=== PATIENT | female | born 1930 | race Caucasian/White ===

== ENCOUNTER 2016-04-21 21:52 | Inpatient (IN) | payer MEDICARE ==
[~2016-04-21] VITALS: Ht 157.5 cm; Wt 69.9 kg
[2016-04-21 11:00] VITALS: BP 158/73
[2016-04-21 22:35] LABS: BASO # 0.1 x10^3/uL (0.0-0.2); BASO % 1 % (0-3); EOS % 2 % (0-3); HEMATOCRIT 36.4 % (36.0-47.0); HEMOGLOBIN 12.2 g/dL (12.0-15.5); LYMPH # 1.6 x10^3/uL (1.0-4.8); LYMPH % 19 % (24-48); MEAN CORPUSCULAR HEMOGLOBIN 31 pg (25-35); MEAN CORPUSCULAR HGB CONC 34 g/dL (31-37); MEAN CORPUSCULAR VOLUME 93 fL (79-100); MONO % 7 % (0-9); NEUT % 71 % (31-73); PLATELET COUNT 356 x10^3/uL (140-400); RED BLOOD COUNT 3.93 x10^6/uL (3.50-5.40); RED CELL DISTRIBUTION WIDTH 12.1 % (11.5-14.5); WHITE BLOOD COUNT 8.5 x10^3/uL (4.0-11.0)
[2016-04-21 22:37] LABS: BILIRUBIN,URINE NEGATIVE (NEG); GLUCOSE,URINE NEGATIVE (NEG); NITRITE,URINE NEGATIVE (NEG); PROTEIN,URINE 30 mg/dL (NEG-TRACE); UROBILINOGEN,URINE 0.2 mg/dL (0.2 mg/dL)
[2016-04-21 22:43] LABS: BACTERIA,URINE 0 /HPF (0-FEW); SQUAMOUS EPITHELIAL CELL,UR MOD /LPF
[2016-04-21 22:48] LABS: CALCIUM 9.1 mg/dL (8.5-10.1); CREATININE 0.9 mg/dL (0.6-1.0); GFR 59.2; POTASSIUM 3.1 mmol/L (3.5-5.1)
[2016-04-21 22:53] LABS: ALBUMIN 2.9 g/dL (3.4-5.0); ALBUMIN/GLOBULIN RATIO 0.7 (1.0-1.7); TOTAL BILIRUBIN 0.1 mg/dL (0.2-1.0); TOTAL PROTEIN 7.2 g/dL (6.4-8.2)
[2016-04-21 23:25] LABS: OBC FLU VALID
[2016-04-21] MEDS ORDERED: IV NORMAL SALINE 1000ML BAG 1,000 ML IV ONE (23:30)
[2016-04-22] VITALS (7 sets, daily range): BP systolic 112–179; BP diastolic 60–73
[2016-04-22] MEDS ORDERED: IV NORMAL SALINE 500ML BAG 500 ML IV ONE
--- NOTE | 2016-04-22 01:14 | ED.ADGEN ---
Past Medical History Past Medical History: Anxiety, Cancer, Hypertension Past Surgical History: Other Additional Past Surgical Histo: Left mastectomy Alcohol Use: None Drug Use: None Adult General Chief Complaint Chief Complaint: FACE PROBLEM HPI HPI Patient is a 85 year old woman, history of hypertension, anxiety, breast cancer status post left mastectomy, who presents emergency department with multiple complaints. Patient states that she's been experiencing a cough, and generalized malaise and fatigue, subjective fevers and chills, for the past several days, patient states that she she has been experiencing rhinorrhea, cough is nonproductive, and noted that she has swelling of her upper lip earlier this afternoon. She does take lisinopril, denies any swelling of the tongue or lower lips, denies any difficulties breathing or swallowing. Has had a decreased appetite. Denies any urinary complaints, any injuries. Patient noted to have very dry mucous membranes upon arrival to the ED, with clear speech, and no significant facial swelling noted. Review of Systems Review of Systems Constitutional: Subjective fevers and chills. Eyes: Denies change in visual acuity. [] HENT: Nasal congestion and sore throat.] Lip swelling. Respiratory: Nonproductive of cough, generalized malaise.] Cardiovascular: Denies chest pain or edema. [] GI: Denies abdominal pain, nausea, vomiting, bloody stools or diarrhea. [] : Denies dysuria. [] Musculoskeletal: Denies back pain or joint pain. [] Integument: Denies rash. [] Neurologic: Denies headache, focal weakness or sensory changes. [] Endocrine: Denies polyuria or polydipsia. [] Lymphatic: Denies swollen glands. [] Psychiatric: Denies depression or anxiety. [] Current Medications Current Medications Current Medications Medications (Trade) Dose Ordered Sig/Stephenie Start Time Stop Time Status Last Admin Dose Admin Sodium Chloride (Iv Sodium Chloride 0.9% 500ml Bag) 500 ml @ 500 mls/hr 1X ONCE 04/22/16 00:00 04/22/16 00:59 DC 04/21/16 23:55 500 MLS/HR Allergies Allergies Allergies Coded Allergies Type Severity Reaction Last Updated Verified No Known Drug Allergies 04/21/16 No Physical Exam Physical Exam Constitutional: Well developed, well nourished, no acute distress, non-toxic appearance. [] HENT: Normocephalic, atraumatic, bilateral external ears normal, oropharynx moist, no oral exudates, patient with nasal congestion noted bilaterally, dry mucous membranes. Patient with very mild swelling of the lip noted, however patient has irritation of the lip, and has an rubbing this area, which appears to be consistent with a smaller swelling she is experiencing, there is no evidence of significant swelling of the upper lip, or any involvement of the tongue lower lip areas of mucosa. Eyes: PERRLA, EOMI, conjunctiva normal, no discharge. [] Neck: Normal range of motion, no tenderness, supple, no stridor. [] Cardiovascular:Heart rate regular rhythm, no murmur, S1, S2, rubs or gallops. [] Lungs & Thorax: Patient coughing during examination, but no significant wheezing , rhonchi or rales appreciated. No chest wall crepitus or tenderness. [] Abdomen: Bowel sounds normal, soft, no tenderness, no rebound, rigidity, no guarding, no masses, no pulsatile masses. [] Skin: Warm, dry, no erythema, no rash. [] Back: No tenderness, no CVA tenderness. [] Extremities: No tenderness, no cyanosis, no clubbing, ROM intact, no edema. Negative Homans sign. [] Neurologic: Alert and oriented X 3, normal motor function, normal sensory function, no focal deficits noted. [] Psychologic: Affect normal, judgement normal, mood normal. [] Current Patient Data Vital Signs Vital Signs Date Time Temp Pulse Resp B/P Pulse Ox O2 Delivery O2 Flow Rate FiO2 04/21/16 23:30 88 15 156/74 96 04/21/16 21:53 98.1 Room Air 98.1 Lab Values Laboratory Tests Test 04/21/16 22:15 04/21/16 23:04 White Blood Count 8.5x10^3/uL (4.0-11.0) Red Blood Count 3.93x10^6/uL (3.50-5.40) Hemoglobin 12.2g/dL (12.0-15.5) Hematocrit 36.4% (36.0-47.0) Mean Corpuscular Volume 93fL (79-100) Mean Corpuscular Hemoglobin 31pg (25-35) Mean Corpuscular Hemoglobin Concent 34g/dL (31-37) Red Cell Distribution Width 12.1% (11.5-14.5) Platelet Count 356x10^3/uL (140-400) Neutrophils (%) (Auto) 71% (31-73) Lymphocytes (%) (Auto) 19% (24-48) L Monocytes (%) (Auto) 7% (0-9) Eosinophils (%) (Auto) 2% (0-3) Basophils (%) (Auto) 1% (0-3) Neutrophils # (Auto) 6.0x10^3uL (1.8-7.7) Lymphocytes # (Auto) 1.6x10^3/uL (1.0-4.8) Monocytes # (Auto) 0.6x10^3/uL (0.0-1.1) Eosinophils # (Auto) 0.1x10^3/uL (0.0-0.7) Basophils # (Auto) 0.1x10^3/uL (0.0-0.2) Urine Collection Type Unknown Urine Color Yellow Urine Clarity Clear Urine pH 6.0 Urine Specific [place] 1.010 Urine Protein 30mg/dL (NEG-TRACE) Urine Glucose (UA) Negativemg/dL (NEG) Urine Ketones (Stick) Negativemg/dL (NEG) Urine Blood Small (NEG) Urine Nitrite Negative (NEG) Urine Bilirubin Negative (NEG) Urine Urobilinogen Dipstick 0.2mg/dL (0.2 mg/dL) Urine Leukocyte Esterase Small (NEG) Urine RBC 1-2/HPF (0-2) Urine WBC 1-4/HPF (0-4) Urine Squamous Epithelial Cells Mod/LPF Urine Bacteria 0/HPF (0-FEW) Sodium Level 135mmol/L (136-145) L Potassium Level 3.1mmol/L (3.5-5.1) L Chloride Level 96mmol/L (98-107) L Carbon Dioxide Level 30mmol/L (21-32) Anion Gap 9 (6-14) Blood Urea Nitrogen 11mg/dL (7-20) Creatinine 0.9mg/dL (0.6-1.0) Estimated GFR (Cockcroft-Gault) 59.2 BUN/Creatinine Ratio 12 (6-20) Glucose Level 236mg/dL (70-99) H Lactic Acid Level 3.6mmol/L (0.4-2.0) H Calcium Level 9.1mg/dL (8.5-10.1) Total Bilirubin 0.1mg/dL (0.2-1.0) L Aspartate Amino Transferase (AST) 18U/L (15-37) Alanine Aminotransferase (ALT) 18U/L (14-59) Alkaline Phosphatase 67U/L (46-116) Troponin I Quantitative < 0.017ng/mL (0.000-0.055) TS-Qyt-B-Type Natriuretic Peptide 119pg/mL (0-449) Total Protein 7.2g/dL (6.4-8.2) Albumin 2.9g/dL (3.4-5.0) L Albumin/Globulin Ratio 0.7 (1.0-1.7) L Influenza Type A Antigen Negative (NEGATIVE) Influenza Type B Antigen Negative (NEGATIVE) Laboratory Tests 04/21/16 22:15 Laboratory Tests 04/21/16 22:15 EKG EKG EC04/06/10: Sinus rhythm, heart rate 90 beats minute, upright axis, QTC of 459 , RI 150, QRS of 76, no ST elevations or depressions, no evidence of acute ST abnormalities. As interpreted by me. [] Interpretation Time: Chest x-ray: Normal cardiopulmonary silhouette, no focal traits, no effusions, no soft tissue or bone abdomen abnormalities identified. As interpreted by me. Radiology/Procedures Radiology/Procedures [] Course & Med Decision Making Course & Med Decision Making Pertinent Labs and Imaging studies reviewed. (See chart for details) Patient is afebrile emergency department, appears to be clinically very dehydrated, with symptoms consistent with a viral illness. Chest x-rays unremarkable, laboratory studies reveal evidence of dehydration with a lactic of 3.6, otherwise Lipitor studies are on concerning, with a negative flu swab. I did discuss findings with patient, she is agreeable for admission to the hospital for supportive management. Patient initiated on fluid bolus and maintenance fluids in the ED. Findings as above discussed with Dr. Floyd of internal medicine, patient accepted to her service as a full admission to the medical telemetry floor with supportive care and monitoring as stated. Dragon Disclaimer Dragon Disclaimer This electronic medical record was generated, in whole or in part, using a voice recognition dictation system. Departure Impression: Primary Impression: Dehydration Additional Impression: Viral respiratory illness Disposition: ADMITTED INPATIENT Admitting Physician: Other Condition: IMPROVED Problem Qualifiers YFN GEORGE DO Apr 22, 2016 01:14
[2016-04-22] MEDS ORDERED: ACETAMINOPHEN 325 MG TABLET. PO PRN (01:30)
[2016-04-22] MEDS ORDERED: ONDANSETRON PF 4 MG/2 ML VIAL. IV PRN (01:30)
[2016-04-22] MEDS: IV NORMAL SALINE 1000ML BAG 1,000 ML IV SCH ×2 (01:50→08:55)
[2016-04-22] MEDS ORDERED: LORA0.5T PO ×3 (01:53)
[2016-04-22] MEDS ORDERED: LISI1TAB3 PO (01:53)
[2016-04-22] MEDS: LORAZEPAM 0.5 MG TABLET. PO SCH ×4 (03:56→21:04)
[2016-04-22] MEDS: IPRATRPIUM/ALBUTEROL 0.5/2.5MG 3 ML NEBU. NEB SCH ×5 (08:08→19:53)
--- NOTE | 2016-04-22 08:18 | RAD ---
AP chest. History: Cough and fever AP view was taken of the chest. 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 Lungs are free of confluent infiltrates. Heart is normal in size. There is no effusion. Impression: 1. No acute chest disease.
--- NOTE | 2016-04-22 08:28 | EKG ---
[facility] [address] [place] [address] Test Date: 2016-04-21 Test Time: 22:11:31 Pat Name: WILBERT LORENZ Department: Room: 563 1 Gender: F Wool Carder: : [id number] Requested By: YFN GEORGE Order Number: [id number] Reading MD: Sruthi Haskins Measurements Intervals [place] Rate: 90 P: 48 WA: 150 QRS: 31 QRSD: 76 T: 52 QT: 372 QTc: 459 Interpretive Statements SINUS RHYTHM NO SPECIFIC ECG ABNORMALITIES RI6.01 Compared to ECG 02/06/2013 01:21:44 No significant changes Electronically Signed On 04-25-2016 23:16:45 SHIATSU THERAPIST by Sruthi Haskins
[2016-04-22] MEDS: HYDROCHLOROTHIAZIDE 12.5 MG CAPSULE. PO SCH (08:54)
[2016-04-22] MEDS: LISINOPRIL 10 MG TABLET PO SCH (08:55)
[2016-04-22] MEDS ORDERED: GUAIFENESIN DM 200MG/20MG 10 ML SYRUP. PO PRN (15:30)
[2016-04-22] MEDS: POTASSIUM CHLORIDE 30 MEQ in IV NORMAL SALINE 1000ML BAG 1,000 ML IV SCH ×2 (16:07→23:45)
[2016-04-22] MEDS ORDERED: LORAZEPAM 0.5 MG TABLET. PO SCH (21:00)
[2016-04-23 03:17] VITALS: BP 171/58
--- NOTE | 2016-04-23 03:47 | HP ---
ADMIT DATE: 04/22/2016 CHIEF COMPLAINT: Weakness. HISTORY OF PRESENT ILLNESS: The patient is an 85-year-old woman with hypertension and anxiety, who presented to the Emergency Room with generalized malaise, subjective fevers, chills, upper respiratory complaints including stuffy nose and sore throat. She relates that these symptoms actually have been going on for about a week. Her cough is very bothersome to her, but is at this time nonproductive. She also has noted some swelling of her upper lip ____ of presentation to the Emergency Room. She denies, however, any chest pain, any nausea, vomiting, swallowing problems, abdominal pain or diarrhea. PAST MEDICAL HISTORY: Hypertension, anxiety, breast cancer, status post left mastectomy. FAMILY HISTORY: Brother with hypertension and CVA. SOCIAL HISTORY: Lives by herself. No toxic habits. ALLERGIES: No known drug allergies. MEDICATIONS: MAR reconciled with home medications. REVIEW OF SYSTEMS: Essentially positive as per HPI for generalized malaise, subjective fevers and upper respiratory symptoms. Rest of organ system review is negative. PHYSICAL EXAMINATION: VITAL SIGNS: Show a blood pressure of 155/73, heart rate of 81, respiratory rate at 14. She is afebrile. GENERAL: This is a well-nourished 85-year-old woman, awake and weak appearing, in no acute distress. HEENT: Shows no scleral icterus. Buccal mucosa is dry and no lesions. NECK: Supple without any palpable lymphadenopathy. LUNGS: Clear to auscultation bilaterally. HEART: Has regular rate and rhythm. ABDOMEN: Has positive bowel sounds, soft, nontender. EXTREMITIES: Show trace edema. SKIN: Warm, soft and dry without any rash. LABORATORY DATA: CBC with WBC of 8.5, hemoglobin 12.2, platelets of 356, essentially normal differential. BUN and creatinine of 11 and 0.9, potassium at 3.1, sodium 135. LFTs within normal, albumin at 2.9, glucose at 236. Serology for Influenza A and B is negative. Urine showed 1-4 WBC, no bacteria. RADIOGRAPHIC STUDIES: Chest x-ray in the Emergency Room shows no acute chest disease. ASSESSMENT AND PLAN: The patient is an 85-year-old woman with minor medical problems who presents with severe upper respiratory infection and dehydration. She is admitted for rehydration and symptom control. She still feels quite weak. We will continue IV fluids, monitor her electrolytes. Her blood pressure is actually on the high side. She is currently on 20 mg of lisinopril and hydrochlorothiazide from home. We will continue that for the time being as creatinine is actually quite good for her. Nutrition has been poor. Hopefully with resolution of dehydration, this will reverse itself. For her symptoms, we will give her Robitussin-DM to loosen her congestion. Prophylaxis will be obtained with heparin subQ. SHANITA GREWAL MD DR: DEBORAH/nts JOB#: [id number] / [id number] SUSANNA Rios MD
[2016-04-23 06:26] LABS: BASO % 1 % (0-3); EOS % 3 % (0-3); HEMATOCRIT 31.9 % (36.0-47.0); HEMOGLOBIN 10.7 g/dL (12.0-15.5); LYMPH # 1.8 x10^3/uL (1.0-4.8); LYMPH % 26 % (24-48); MEAN CORPUSCULAR HEMOGLOBIN 31 pg (25-35); MEAN CORPUSCULAR HGB CONC 33 g/dL (31-37); MEAN CORPUSCULAR VOLUME 93 fL (79-100); MONO % 8 % (0-9); NEUT % 63 % (31-73); PLATELET COUNT 358 x10^3/uL (140-400); RED BLOOD COUNT 3.44 x10^6/uL (3.50-5.40); RED CELL DISTRIBUTION WIDTH 12.2 % (11.5-14.5); WHITE BLOOD COUNT 7.1 x10^3/uL (4.0-11.0)
[2016-04-23 06:50] LABS: CALCIUM 8.4 mg/dL (8.5-10.1); CREATININE 0.7 mg/dL (0.6-1.0); GFR 79.2; POTASSIUM 3.6 mmol/L (3.5-5.1)
[2016-04-23 07:22] VITALS: BP 149/90
[2016-04-23] MEDS: IPRATRPIUM/ALBUTEROL 0.5/2.5MG 3 ML NEBU. NEB SCH ×3 (07:39→20:00)
[2016-04-23] MEDS: HYDROCHLOROTHIAZIDE 12.5 MG CAPSULE. PO SCH (08:19)
[2016-04-23] MEDS: POTASSIUM CHLORIDE 30 MEQ in IV NORMAL SALINE 1000ML BAG 1,000 ML IV SCH ×2 (08:19→17:06)
[2016-04-23] MEDS: LISINOPRIL 10 MG TABLET PO SCH (08:20)
[2016-04-23] MEDS: LORAZEPAM 0.5 MG TABLET. PO SCH ×3 (08:21→21:13)
[2016-04-23] MEDS ORDERED: POTASSIUM CHLORIDE 20 MEQ TABLET.ER. PO ONE (10:45)
--- NOTE | 2016-04-23 10:45 | PDOC ---
PROGRESS NOTES Chief Complaint Chief Complaint viral respiratory infection weakness and debility w/ myalgia, flu swab neg early dementia hypokalemia, moderate malnutrition, POA Vitals Vitals Vital Signs Date Time Temp Pulse Resp B/P Pulse Ox O2 Delivery O2 Flow Rate FiO2 04/23/16 08:20 82 149/90 04/23/16 08:00 Room Air 04/23/16 07:41 98 04/23/16 07:22 97.7 18 97.7 Physical Exam General: Alert, Cooperative, No acute distress, Other (orient 2/4) Lungs: Clear Abdomen: Normal bowel sounds Extremities: No clubbing, No cyanosis Skin: No rashes, No breakdown Labs LABS Laboratory Tests Test 04/23/16 05:45 White Blood Count 7.1x10^3/uL (4.0-11.0) Red Blood Count 3.44x10^6/uL (3.50-5.40) Hemoglobin 10.7g/dL (12.0-15.5) Hematocrit 31.9% (36.0-47.0) Mean Corpuscular Volume 93fL (79-100) Mean Corpuscular Hemoglobin 31pg (25-35) Mean Corpuscular Hemoglobin Concent 33g/dL (31-37) Red Cell Distribution Width 12.2% (11.5-14.5) Platelet Count 358x10^3/uL (140-400) Neutrophils (%) (Auto) 63% (31-73) Lymphocytes (%) (Auto) 26% (24-48) Monocytes (%) (Auto) 8% (0-9) Eosinophils (%) (Auto) 3% (0-3) Basophils (%) (Auto) 1% (0-3) Neutrophils # (Auto) 4.5x10^3uL (1.8-7.7) Lymphocytes # (Auto) 1.8x10^3/uL (1.0-4.8) Monocytes # (Auto) 0.5x10^3/uL (0.0-1.1) Eosinophils # (Auto) 0.2x10^3/uL (0.0-0.7) Basophils # (Auto) 0.0x10^3/uL (0.0-0.2) Sodium Level 139mmol/L (136-145) Potassium Level 3.6mmol/L (3.5-5.1) Chloride Level 103mmol/L (98-107) Carbon Dioxide Level 26mmol/L (21-32) Anion Gap 10 (6-14) Blood Urea Nitrogen 10mg/dL (7-20) Creatinine 0.7mg/dL (0.6-1.0) Estimated GFR (Cockcroft-Gault) 79.2 Glucose Level 123mg/dL (70-99) Calcium Level 8.4mg/dL (8.5-10.1) Review of Systems Review of Systems no n.v.d Assessment and Plan Assessmemt and Plan cough and shortness of breath improved now weakess and debility PT and ot eval to treat, may need SNU, likely Problems Medical Problems: (1) Dehydration Status: Acute (2) Viral respiratory illness Status: Acute Problems: Comment Review of Relevant I have reviewed the following items gurpreet (where applicable) has been applied. Labs Laboratory Tests Test 04/21/16 22:15 04/21/16 23:04 04/22/16 07:33 04/23/16 05:45 White Blood Count 8.5x10^3/uL (4.0-11.0) 7.1x10^3/uL (4.0-11.0) Red Blood Count 3.93x10^6/uL (3.50-5.40) 3.44x10^6/uL (3.50-5.40) Hemoglobin 12.2g/dL (12.0-15.5) 10.7g/dL (12.0-15.5) Hematocrit 36.4% (36.0-47.0) 31.9% (36.0-47.0) Mean Corpuscular Volume 93fL (79-100) 93fL (79-100) Mean Corpuscular Hemoglobin 31pg (25-35) 31pg (25-35) Mean Corpuscular Hemoglobin Concent 34g/dL (31-37) 33g/dL (31-37) Red Cell Distribution Width 12.1% (11.5-14.5) 12.2% (11.5-14.5) Platelet Count 356x10^3/uL (140-400) 358x10^3/uL (140-400) Neutrophils (%) (Auto) 71% (31-73) 63% (31-73) Lymphocytes (%) (Auto) 19% (24-48) 26% (24-48) Monocytes (%) (Auto) 7% (0-9) 8% (0-9) Eosinophils (%) (Auto) 2% (0-3) 3% (0-3) Basophils (%) (Auto) 1% (0-3) 1% (0-3) Neutrophils # (Auto) 6.0x10^3uL (1.8-7.7) 4.5x10^3uL (1.8-7.7) Lymphocytes # (Auto) 1.6x10^3/uL (1.0-4.8) 1.8x10^3/uL (1.0-4.8) Monocytes # (Auto) 0.6x10^3/uL (0.0-1.1) 0.5x10^3/uL (0.0-1.1) Eosinophils # (Auto) 0.1x10^3/uL (0.0-0.7) 0.2x10^3/uL (0.0-0.7) Basophils # (Auto) 0.1x10^3/uL (0.0-0.2) 0.0x10^3/uL (0.0-0.2) Urine Collection Type Unknown Urine Color Yellow Urine Clarity Clear Urine pH 6.0 Urine Specific [place] 1.010 Urine Protein 30mg/dL (NEG-TRACE) Urine Glucose (UA) Negativemg/dL (NEG) Urine Ketones (Stick) Negativemg/dL (NEG) Urine Blood Small (NEG) Urine Nitrite Negative (NEG) Urine Bilirubin Negative (NEG) Urine Urobilinogen Dipstick 0.2mg/dL (0.2 mg/dL) Urine Leukocyte Esterase Small (NEG) Urine RBC 1-2/HPF (0-2) Urine WBC 1-4/HPF (0-4) Urine Squamous Epithelial Cells Mod/LPF Urine Bacteria 0/HPF (0-FEW) Sodium Level 135mmol/L (136-145) 139mmol/L (136-145) Potassium Level 3.1mmol/L (3.5-5.1) 3.6mmol/L (3.5-5.1) Chloride Level 96mmol/L (98-107) 103mmol/L (98-107) Carbon Dioxide Level 30mmol/L (21-32) 26mmol/L (21-32) Anion Gap 9 (6-14) 10 (6-14) Blood Urea Nitrogen 11mg/dL (7-20) 10mg/dL (7-20) Creatinine 0.9mg/dL (0.6-1.0) 0.7mg/dL (0.6-1.0) Estimated GFR (Cockcroft-Gault) 59.2 79.2 BUN/Creatinine Ratio 12 (6-20) Glucose Level 236mg/dL (70-99) 123mg/dL (70-99) Lactic Acid Level 3.6mmol/L (0.4-2.0) Calcium Level 9.1mg/dL (8.5-10.1) 8.4mg/dL (8.5-10.1) Total Bilirubin 0.1mg/dL (0.2-1.0) Aspartate Amino Transf (AST/SGOT) 18U/L (15-37) Alanine Aminotransferase (ALT/SGPT) 18U/L (14-59) Alkaline Phosphatase 67U/L (46-116) Troponin I Quantitative < 0.017ng/mL (0.000-0.055) XV-Qfw-F-Type Natriuretic Peptide 119pg/mL (0-449) Total Protein 7.2g/dL (6.4-8.2) Albumin 2.9g/dL (3.4-5.0) Albumin/Globulin Ratio 0.7 (1.0-1.7) Influenza Type A Antigen Negative (NEGATIVE) Influenza Type B Antigen Negative (NEGATIVE) Glucose (Fingerstick) 116mg/dL (70-99) Laboratory Tests Test 04/23/16 05:45 White Blood Count 7.1x10^3/uL (4.0-11.0) Red Blood Count 3.44x10^6/uL (3.50-5.40) Hemoglobin 10.7g/dL (12.0-15.5) Hematocrit 31.9% (36.0-47.0) Mean Corpuscular Volume 93fL (79-100) Mean Corpuscular Hemoglobin 31pg (25-35) Mean Corpuscular Hemoglobin Concent 33g/dL (31-37) Red Cell Distribution Width 12.2% (11.5-14.5) Platelet Count 358x10^3/uL (140-400) Neutrophils (%) (Auto) 63% (31-73) Lymphocytes (%) (Auto) 26% (24-48) Monocytes (%) (Auto) 8% (0-9) Eosinophils (%) (Auto) 3% (0-3) Basophils (%) (Auto) 1% (0-3) Neutrophils # (Auto) 4.5x10^3uL (1.8-7.7) Lymphocytes # (Auto) 1.8x10^3/uL (1.0-4.8) Monocytes # (Auto) 0.5x10^3/uL (0.0-1.1) Eosinophils # (Auto) 0.2x10^3/uL (0.0-0.7) Basophils # (Auto) 0.0x10^3/uL (0.0-0.2) Sodium Level 139mmol/L (136-145) Potassium Level 3.6mmol/L (3.5-5.1) Chloride Level 103mmol/L (98-107) Carbon Dioxide Level 26mmol/L (21-32) Anion Gap 10 (6-14) Blood Urea Nitrogen 10mg/dL (7-20) Creatinine 0.7mg/dL (0.6-1.0) Estimated GFR (Cockcroft-Gault) 79.2 Glucose Level 123mg/dL (70-99) Calcium Level 8.4mg/dL (8.5-10.1) Medications Current Medications Sodium Chloride 1,000 ml @ 100 mls/hr 1X ONCE IV Last administered on 23:54; Start 04/21/16 at 23:30; Stop 04/22/16 at 09:29; Status DC Sodium Chloride (Iv Sodium Chloride 0.9% 500ml Bag) 500 ml @ 500 mls/hr 1X ONCE IV Last administered on 04/21/16 23:55; Start 04/22/16 at 00:00; Stop at 00:59; Status DC Ondansetron HCl 4 mg 4 mg PRN Q8HRS PRN IV NAUSEA/VOMITING; Start 04/22/16 at 01 :30; Stop 04/23/16 at 01:29; Status DC Sodium Chloride (Iv Sodium Chloride 0.9% 1000ml Bag) 1,000 ml @ 100 mls/hr Q10H IV Last administered on 04/22/16 08:55; Start 04/22/16 at 01:22; Stop at 15:24; Status DC Acetaminophen (Tylenol) 650 mg PRN Q4HRS PRN PO FEVER; Start 04/22/16 at 01:30; Stop 04/23/16 at 01:29; Status DC Albuterol/ Ipratropium (Duoneb) 3 ml RTQID NEB Last administered on 04/23/16 07 :39; Start 04/22/16 at 08:00; Stop 04/23/16 at 07:59; Status DC Lorazepam (Ativan) 0.25 mg DAILY PO Last administered on 04/23/16 08:21; Start 04/22/16 at 09:00 Lorazepam (Ativan) 0.25 mg DAILY16 PO Last administered on 04/22/16 16:21; Start 04/22/16 at 16:00 Lorazepam (Ativan) 0.5 mg HS PO ; Start 04/22/16 at 21:00; Stop 04/22/16 at 21:00 ; Status DC Lisinopril (Prinivil) 10 mg DAILY PO Last administered on 04/23/16 08:20; Start 04/22/16 at 09:00 Hydrochlorothiazide (Microzide) 12.5 mg DAILY PO Last administered on 04/23/16 08:19; Start 04/22/16 at 09:00 Lorazepam 0.5 mg 0.5 mg HS PO Last administered on 04/22/16 21:04; Start at 04:00 Potassium Chloride/Sodium Chloride (Iv Sodium Chloride 0.9% 1000ml Bag) 1,015 ml @ 125 mls/hr Q8H8M IV Last administered on 04/23/16 08:19; Start 04/22/16 at 15:30 Guaifenesin (Robitussin Dm) 10 ml PRN Q4HRS PRN PO COUGH; Start 04/22/16 at 15: 30 Potassium Chloride (Klor-Con) 20 meq 1X ONCE PO ; Start 04/23/16 at 10:45; Stop 04/23/16 at 10:46 Active Scripts Active Reported Lisinopril-Hctz 10-12.5 Mg Tab (Lisinopril/Hydrochlorothiazide) 1 Each Tablet 1 Tab PO DAILY Lorazepam 0.5 Mg Tablet 0.5 Mg PO HS Lorazepam 0.5 Mg Tablet 0.25 Mg PO DAILY16 Lorazepam 0.5 Mg Tablet 0.25 Mg PO DAILY Vitals/I & O Vital Sign - Last 24 Hours 04/22/16 04/22/16 04/22/16 04/22/16 11:00 12:46 15:00 15:48 Temp 97.4 97.4 98.1 97.4 97.4 98.1 Pulse 76 76 72 Resp 14 14 14 B/P 158/73 158/73 148/73 Pulse Ox 96 96 95 98 O2 Delivery Room Air Room Air Room Air Room Air 04/22/16 04/22/16 04/22/16 04/23/16 19:00 20:00 23:34 03:17 Temp 97.5 98.1 97.9 97.5 98.1 97.9 Pulse 66 79 78 Resp 18 16 16 B/P 139/63 179/67 171/58 Pulse Ox 95 94 95 O2 Delivery Room Air Room Air Room Air Room Air 04/23/16 04/23/16 04/23/16 04/23/16 07:22 07:41 08:00 08:20 Temp 97.7 97.7 Pulse 82 82 Resp 18 B/P 149/90 149/90 Pulse Ox 94 98 O2 Delivery Room Air Room Air Room Air Intake and Output 04/22/16 04/22/16 04/23/16 15:00 23:00 07:00 Intake Total 1000 ml 1600 ml 1000 ml Output Total 550 ml Balance 1000 ml 1600 ml 450 ml KETTY UREÑA MD Apr 23, 2016 10:45
[2016-04-23 11:01] VITALS: BP 157/63
[2016-04-23 15:20] VITALS: BP 149/66
[2016-04-23 19:00] VITALS: BP 161/74
[2016-04-23 23:00] VITALS: BP 148/81
[2016-04-24] MEDS: POTASSIUM CHLORIDE 30 MEQ in IV NORMAL SALINE 1000ML BAG 1,000 ML IV SCH ×2 (00:02→05:51)
[2016-04-24 03:00] VITALS: BP 157/80
[2016-04-24 07:00] VITALS: BP 162/91
[2016-04-24] MEDS: IPRATRPIUM/ALBUTEROL 0.5/2.5MG 3 ML NEBU. NEB SCH ×4 (07:40→20:10)
--- NOTE | 2016-04-24 09:27 | PDOC ---
PROGRESS NOTES Chief Complaint Chief Complaint viral respiratory infection weakness and debility w/ myalgia, flu swab neg early dementia hypokalemia, moderate malnutrition, POA History of Present Illness History of Present Illness some weakness using bedside commode Vitals Vitals Vital Signs Date Time Temp Pulse Resp B/P Pulse Ox O2 Delivery O2 Flow Rate FiO2 04/24/16 07:40 95 Room Air 04/24/16 07:00 97.9 95 16 162/91 97.9 Physical Exam General: Alert, Cooperative, No acute distress, Other (orient 2/4) Heart: Regular rate, Gallops Lungs: Clear Abdomen: Normal bowel sounds Extremities: No clubbing, No cyanosis Skin: No rashes, No breakdown Review of Systems Review of Systems no n/v.d. Assessment and Plan Assessmemt and Plan needs SNU placement DC iv fluid some dementia Problems Medical Problems: (1) Dehydration Status: Acute (2) Viral respiratory illness Status: Acute Problems: Comment Review of Relevant I have reviewed the following items gurpreet (where applicable) has been applied. Labs Laboratory Tests Test 04/23/16 05:45 White Blood Count 7.1x10^3/uL (4.0-11.0) Red Blood Count 3.44x10^6/uL (3.50-5.40) Hemoglobin 10.7g/dL (12.0-15.5) Hematocrit 31.9% (36.0-47.0) Mean Corpuscular Volume 93fL (79-100) Mean Corpuscular Hemoglobin 31pg (25-35) Mean Corpuscular Hemoglobin Concent 33g/dL (31-37) Red Cell Distribution Width 12.2% (11.5-14.5) Platelet Count 358x10^3/uL (140-400) Neutrophils (%) (Auto) 63% (31-73) Lymphocytes (%) (Auto) 26% (24-48) Monocytes (%) (Auto) 8% (0-9) Eosinophils (%) (Auto) 3% (0-3) Basophils (%) (Auto) 1% (0-3) Neutrophils # (Auto) 4.5x10^3uL (1.8-7.7) Lymphocytes # (Auto) 1.8x10^3/uL (1.0-4.8) Monocytes # (Auto) 0.5x10^3/uL (0.0-1.1) Eosinophils # (Auto) 0.2x10^3/uL (0.0-0.7) Basophils # (Auto) 0.0x10^3/uL (0.0-0.2) Sodium Level 139mmol/L (136-145) Potassium Level 3.6mmol/L (3.5-5.1) Chloride Level 103mmol/L (98-107) Carbon Dioxide Level 26mmol/L (21-32) Anion Gap 10 (6-14) Blood Urea Nitrogen 10mg/dL (7-20) Creatinine 0.7mg/dL (0.6-1.0) Estimated GFR (Cockcroft-Gault) 79.2 Glucose Level 123mg/dL (70-99) Calcium Level 8.4mg/dL (8.5-10.1) Medications Current Medications Sodium Chloride 1,000 ml @ 100 mls/hr 1X ONCE IV Last administered on 23:54; Start 04/21/16 at 23:30; Stop 04/22/16 at 09:29; Status DC Sodium Chloride (Iv Sodium Chloride 0.9% 500ml Bag) 500 ml @ 500 mls/hr 1X ONCE IV Last administered on 04/21/16 23:55; Start 04/22/16 at 00:00; Stop at 00:59; Status DC Ondansetron HCl 4 mg 4 mg PRN Q8HRS PRN IV NAUSEA/VOMITING; Start 04/22/16 at 01 :30; Stop 04/23/16 at 01:29; Status DC Sodium Chloride (Iv Sodium Chloride 0.9% 1000ml Bag) 1,000 ml @ 100 mls/hr Q10H IV Last administered on 04/22/16 08:55; Start 04/22/16 at 01:22; Stop at 15:24; Status DC Acetaminophen (Tylenol) 650 mg PRN Q4HRS PRN PO FEVER; Start 04/22/16 at 01:30; Stop 04/23/16 at 01:29; Status DC Albuterol/ Ipratropium (Duoneb) 3 ml RTQID NEB Last administered on 04/23/16 07 :39; Start 04/22/16 at 08:00; Stop 04/23/16 at 07:59; Status DC Lorazepam (Ativan) 0.25 mg DAILY PO Last administered on 04/23/16 08:21; Start 04/22/16 at 09:00 Lorazepam (Ativan) 0.25 mg DAILY16 PO Last administered on 04/23/16 15:45; Start 04/22/16 at 16:00 Lorazepam (Ativan) 0.5 mg HS PO ; Start 04/22/16 at 21:00; Stop 04/22/16 at 21:00 ; Status DC Lisinopril (Prinivil) 10 mg DAILY PO Last administered on 04/23/16 08:20; Start 04/22/16 at 09:00 Hydrochlorothiazide (Microzide) 12.5 mg DAILY PO Last administered on 04/23/16 08:19; Start 04/22/16 at 09:00 Lorazepam 0.5 mg 0.5 mg HS PO Last administered on 04/23/16 21:13; Start at 04:00 Potassium Chloride/Sodium Chloride (Iv Sodium Chloride 0.9% 1000ml Bag) 1,015 ml @ 125 mls/hr Q8H8M IV Last administered on 04/24/16 05:51; Start 04/22/16 at 15:30 Guaifenesin (Robitussin Dm) 10 ml PRN Q4HRS PRN PO COUGH; Start 04/22/16 at 15: 30 Potassium Chloride (Klor-Con) 20 meq 1X ONCE PO Last administered on 04/23/16 10:54; Start 04/23/16 at 10:45; Stop 04/23/16 at 10:46; Status DC Albuterol/ Ipratropium (Duoneb) 3 ml RTQID NEB Last administered on 04/24/16 07:40; Start 04/23/16 at 16:00 Active Scripts Active Reported Lisinopril-Hctz 10-12.5 Mg Tab (Lisinopril/Hydrochlorothiazide) 1 Each Tablet 1 Tab PO DAILY Lorazepam 0.5 Mg Tablet 0.5 Mg PO HS Lorazepam 0.5 Mg Tablet 0.25 Mg PO DAILY16 Lorazepam 0.5 Mg Tablet 0.25 Mg PO DAILY Vitals/I & O Vital Sign - Last 24 Hours 04/23/16 04/23/16 04/23/16 04/23/16 11:01 15:20 16:14 19:00 Temp 97.7 97.7 98.0 97.7 97.7 98.0 Pulse 77 81 80 Resp 18 B/P 157/63 149/66 161/74 Pulse Ox 95 94 96 O2 Delivery Room Air Room Air Room Air 04/23/16 04/23/16 04/24/16 04/24/16 20:10 23:00 03:00 07:00 Temp 98.0 98.3 97.9 98.0 98.3 97.9 Pulse 71 76 95 Resp 16 B/P 148/81 157/80 162/91 Pulse Ox 95 95 92 O2 Delivery Room Air Room Air 04/24/16 07:40 Pulse Ox 95 O2 Delivery Room Air Intake and Output 04/23/16 04/23/16 04/24/16 15:00 23:00 07:00 Intake Total 820 ml 370 ml Output Total 2 ml Balance 820 ml 368 ml KETTY UREÑA MD Apr 24, 2016 09:27
[2016-04-24] MEDS: LORAZEPAM 0.5 MG TABLET. PO SCH ×3 (09:37→21:54)
[2016-04-24] MEDS: HYDROCHLOROTHIAZIDE 12.5 MG CAPSULE. PO SCH (09:37)
[2016-04-24] MEDS: LISINOPRIL 10 MG TABLET PO SCH (09:38)
[2016-04-24 10:50] VITALS: BP 141/69
[2016-04-24 15:00] VITALS: BP 128/88
[2016-04-24 19:00] VITALS: BP 156/76
[2016-04-24 23:00] VITALS: BP 136/89
[2016-04-25 03:00] VITALS: BP 170/92
[2016-04-25 07:05] VITALS: BP 147/85
[2016-04-25] MEDS: IPRATRPIUM/ALBUTEROL 0.5/2.5MG 3 ML NEBU. NEB SCH ×2 (07:29→11:22)
[2016-04-25] MEDS: LISINOPRIL 10 MG TABLET PO SCH (09:00)
[2016-04-25] MEDS: HYDROCHLOROTHIAZIDE 12.5 MG CAPSULE. PO SCH (09:00)
[2016-04-25] MEDS: LORAZEPAM 0.5 MG TABLET. PO SCH (09:00)
[2016-04-25 10:42] VITALS: BP 146/74
[2016-04-25] MEDS ORDERED: GUAI5SYR PO (11:11)
--- NOTE | 2016-04-25 11:23 | PDOC3 ---
Discharge Summary Visit Information Date of Admission: Apr 22, 2016 Date of Discharge: Apr 25, 2016 Admitting Diagnosis: resp infection Final Diagnosis viral respiratory infection weakness and debility w/ myalgia, flu swab neg early dementia hypokalemia, moderate malnutrition, POA Problems Medical Problems: (1) Dehydration Status: Acute (2) Viral respiratory illness Status: Acute Brief Hospital Course Allergies Allergies Coded Allergies Type Severity Reaction Last Updated Verified No Known Drug Allergies 04/21/16 No Vital Signs Vital Signs Date Time Temp Pulse Resp B/P Pulse Ox O2 Delivery O2 Flow Rate FiO2 04/25/16 10:42 97.7 81 16 146/74 94 Room Air 97.7 Brief Hospital Course Ms. Hernandez is a 85 old female, admit with cough, myalgia, flu swab neg X sero X2. symptom support, very weak. using bedside commode, needs assistance. Breathing better, no cough at DC, unable to perform ADLs due to acute illness Discharge Information Condition at Discharge: Improved Follow Up: Weeks Disposition/Orders: D/C to Another Facility Scheduled Lisinopril/Hydrochlorothiazide (Lisinopril-Hctz 10-12.5 Mg Tab) 1 TAB PO DAILY ( Reported) Lorazepam (Lorazepam) 0.25 MG PO DAILY (Reported) Lorazepam (Lorazepam) 0.25 MG PO DAILY16 (Reported) Lorazepam (Lorazepam) 0.5 MG PO HS (Reported) Scheduled PRN Guaifenesin/Dextromethorphan (Guaifenesin Dm Syrup) 10 ML PO PRN Q4HRS PRN PRN COUGH Patient Instructions Patient Instructions to skilled need rehab PT and OT KETTY UREÑA MD Apr 25, 2016 11:23
== END 2016-04-25 13:30 | DRG 866 ==
LOC: ER 21:52 → 5 SOUTH 04-22 00:12
PROVIDERS: ADMIT Internal Medicine Hematology & Oncology; ATTEND Internal Medicine Hematology & Oncology
DX: B34.9 Viral infection, unspecified (principal); E44.0 Moderate protein-calorie malnutrition; E87.6 Hypokalemia; E86.0 Dehydration; F03.90 Unspecified dementia, unspecified severity, without behavioral disturbance, psychotic disturbance, mood disturbance, and anxiety; F41.9 Anxiety disorder, unspecified; I10 Essential (primary) hypertension; Z82.3 Family history of stroke; Z82.49 Family history of ischemic heart disease and other diseases of the circulatory system; Z85.3 Personal history of malignant neoplasm of breast; Z90.12 Acquired absence of left breast and nipple; Z68.28 Body mass index [BMI] 28.0-28.9, adult
CPT/HCPCS: 36415; 71010; 80048; 80053; 81001; 82947; 83605; 83880; 84484; 85027; 87086; 87804; 93005; 94250; 94640; 94760; 96360; J7030; J7040; J7620; 97116; 97530; 99285-25

== ENCOUNTER 2016-11-14 16:00 | Emergency (ER) | payer MEDICARE ==
[~2016-11-14] VITALS: Ht 157.5 cm; Wt 68.0 kg
[~2016-11-14 16:00] MED LIST: GUAI5SYR PO; LISI1TAB3 PO; LORA0.5T PO
[2016-11-14 16:52] LABS: BASO # 0.1 x10^3/uL (0.0-0.2); BASO % 1 % (0-3); EOS % 1 % (0-3); HEMATOCRIT 37.4 % (36.0-47.0); HEMOGLOBIN 12.7 g/dL (12.0-15.5); LYMPH # 2.1 x10^3/uL (1.0-4.8); LYMPH % 20 % (24-48); MEAN CORPUSCULAR HEMOGLOBIN 32 pg (25-35); MEAN CORPUSCULAR HGB CONC 34 g/dL (31-37); MEAN CORPUSCULAR VOLUME 93 fL (79-100); MONO % 8 % (0-9); NEUT % 72 % (31-73); PLATELET COUNT 303 x10^3/uL (140-400); RED BLOOD COUNT 4.03 x10^6/uL (3.50-5.40); RED CELL DISTRIBUTION WIDTH 12.5 % (11.5-14.5); WHITE BLOOD COUNT 10.8 x10^3/uL (4.0-11.0)
[2016-11-14 16:58] LABS: CALCIUM 8.8 mg/dL (8.5-10.1); CREATININE 0.8 mg/dL (0.6-1.0); GFR 67.7; POTASSIUM 3.5 mmol/L (3.5-5.1)
[2016-11-14 17:04] LABS: ALBUMIN 3.4 g/dL (3.4-5.0); ALBUMIN/GLOBULIN RATIO 0.8 (1.0-1.7); TOTAL BILIRUBIN 0.5 mg/dL (0.2-1.0); TOTAL PROTEIN 7.7 g/dL (6.4-8.2)
[2016-11-14] MEDS ORDERED: IOHEXOL 300 MG/ML 75 ML VIAL IV ONE (17:15)
[2016-11-14] MEDS ORDERED: LIDO:MAALOX:DONNATAL 1:1:1 15 ML SINGLE DOSE SWSW ONE (17:15)
--- NOTE | 2016-11-14 18:38 | RAD ---
CT SOFT TISSUE NECK W/CONTRAST dated 11/14/2016 5:49 PM Indication: Painful swallowing for 2 days Comparison: Neck CTA December 06, 2012 Technique: CT imaging was performed of the[neck], multiplanar reconstruction images submitted. One or more of the following individualized dose reduction techniques were utilized for this examination: 1. Automated exposure control 2. Adjustment of the mA and/or kV according to patient size 3. Use of iterative reconstruction technique. Contrast: 75 cc Omnipaque 300 Findings: There is now somewhat ovoid hypodense lesion along the posterior wall of the right hypopharynx involving the right piriform sinus, greatest dimension approximately 1.4 cm transverse by 0.8 cm AP by approximately 1 cm cc. Internal density measurements are on the order of 21 Hounsfield units, not associated with significant peripheral enhancement. Appearance of some asymmetry of the right false cord is similar in appearance in the interval. The airway is patent. Tonsils are symmetric in appearance. Epiglottis is not appreciably thickened. 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 Mastoid air cells are aerated. Paranasal sinuses are overall aerated. There is deviation of nasal septum to the right. There is preservation of the parapharyngeal fat planes. Likely node of the anterior right parotid gland is similar. Right level 2 node 0.9 cm short axis dimension is larger although not considered significantly enlarged by axial imaging criteria. Left level 2 node on the order of 0.7 cm and another node 0.8 cm short axis dimension are also larger in the interval. 0.9 cm hypodense lesion of the right thyroid gland is larger than previously, some other heterogeneity of the thyroid gland bilaterally and also probable small hypodense nodule posteriorly on the left 0.4 cm overall unchanged. There is also likely 0.8 cm hypodense nodule of the left thyroid gland more inferiorly, overall similar. There is biapical pleural thickening as seen previously. IMPRESSION: 1. There is now ovoid hypodense lesion along the posterior wall of the right hypopharynx involving the right piriform sinus internal density measurements more suggestive of borderline complex fluid. An abscess is not excluded although no significant peripheral enhancement. Cystic mass is not excluded. Visual evaluation is advised. 2. While not considered significantly enlarged, nodes of the bilateral neck are larger than previous exam. 3. There are some hypodense thyroid nodules, on the right slightly larger than previous exam. Electronically signed by: Prabhakar Mooney MD (11/14/2016 6:34 PM) [facility]
[2016-11-14] MEDS ORDERED: DEXAMETHASONE SOD PHOS 20 MG/5 ML VIAL. IV ONE (19:00)
--- NOTE | 2016-11-14 19:04 | PHYS DOC ---
Past Medical History Past Medical History: Anxiety, Cancer, Hypertension Past Surgical History: Other Additional Past Surgical Histo: Left mastectomy Alcohol Use: None Drug Use: None Adult General Chief Complaint Chief Complaint: OTHER COMPLAINTS HPI HPI Patient is a 86 year old female presenting to the emergency department for evaluation of a sore throat with painful swallowing that has been going on for at least 2-3 days. She saw her primary care provider yesterday and was prescribed clindamycin but she says the pain has persisted and possibly worsened. She feels that her anterior neck is swollen. She has been drinking fluids with no difficulty but it is painful to swallow. Review of Systems Review of Systems Constitutional: Denies fever or chills [] Eyes: Denies change in visual acuity, redness, or eye pain [] HENT: Denies nasal congestion. + sore throat [] Respiratory: Denies cough or shortness of breath [] Cardiovascular: No additional information not addressed in HPI [] GI: Denies abdominal pain, nausea, vomiting, bloody stools or diarrhea [] Current Medications Current Medications Current Medications Medications (Trade) Dose Ordered Sig/Stephenie Start Time Stop Time Status Last Admin Dose Admin Dexamethasone Sodium Phosphate (Decadron) 5 mg 1X ONCE 11/14/16 19:00 11/14/16 19:04 DC 11/14/16 19:26 5 MG Iohexol (Omnipaque 300 Mg/ml) 75 ml 1X ONCE 11/14/16 17:15 11/14/16 17:17 DC 11/14/16 17:44 75 ML Multi-Ingredient Mouthwash/Gargle (Gi Cocktail Single Dose) 15 ml 1X ONCE 11/14/16 17:15 11/14/16 17:16 DC 11/14/16 17:07 15 ML Allergies Allergies Allergies Coded Allergies Type Severity Reaction Last Updated Verified alendronate sodium Allergy Intermediate 11/14/16 Yes furosemide Allergy Intermediate 11/14/16 Yes rosuvastatin Allergy Intermediate 11/14/16 Yes Penicillins Allergy Mild "made my heart beat hard" 11/14/16 Yes atorvastatin Adverse Reaction Mild "made my stomach burn" 11/14/16 Yes cerivastatin Adverse Reaction Mild "it numbs the top of my head" 11/14/16 Yes chlorpromazine Adverse Reaction Mild "makes me tense and dopey" 11/14/16 Yes fenofibrate Adverse Reaction Mild "I had to hold on to the furniture" 11/14/16 Yes fluvastatin Adverse Reaction Mild "blows up my stomach" 11/14/16 Yes levofloxacin Adverse Reaction Mild "it made me have to hold on to the furniture" 11/14/16 Yes simvastatin Adverse Reaction Mild "muhammad stomach" 11/14/16 Yes thioridazine Adverse Reaction Mild "it makes me dopey and sleepy" 11/14/16 Yes gemfibrozil Adverse Reaction Unknown "things are not right" 11/14/16 Yes Physical Exam Physical Exam Constitutional: Well developed, well nourished, no acute distress, non-toxic appearance. [] HENT: Normocephalic, atraumatic, bilateral external ears normal, oropharynx moist, no oral exudates, nose normal. [] Eyes: PERRLA, EOMI, conjunctiva normal, no discharge. [] Neck: Anterior neck swollen with bilateral sub-mandibular lymphadenopathy present. On direct exam of her pharynx it is bright red but there is no obvious swelling to her soft palate and she has a very patent airway. Cardiovascular:Heart rate regular rhythm, no murmur [] Lungs & Thorax: Bilateral breath sounds clear to auscultation [] Current Patient Data Vital Signs Vital Signs Date Time Temp Pulse Resp B/P (MAP) Pulse Ox O2 Delivery O2 Flow Rate FiO2 11/14/16 19:25 77 18 163/72 (102) 97 Room Air 11/14/16 16:30 98.4 98.4 Lab Values Laboratory Tests Test 11/14/16 16:40 White Blood Count 10.8 x10^3/uL (4.0-11.0) Red Blood Count 4.03 x10^6/uL (3.50-5.40) Hemoglobin 12.7 g/dL (12.0-15.5) Hematocrit 37.4 % (36.0-47.0) Mean Corpuscular Volume 93 fL (79-100) Mean Corpuscular Hemoglobin 32 pg (25-35) Mean Corpuscular Hemoglobin Concent 34 g/dL (31-37) Red Cell Distribution Width 12.5 % (11.5-14.5) Platelet Count 303 x10^3/uL (140-400) Neutrophils (%) (Auto) 72 % (31-73) Lymphocytes (%) (Auto) 20 % (24-48) L Monocytes (%) (Auto) 8 % (0-9) Eosinophils (%) (Auto) 1 % (0-3) Basophils (%) (Auto) 1 % (0-3) Neutrophils # (Auto) 7.7 x10^3uL (1.8-7.7) Lymphocytes # (Auto) 2.1 x10^3/uL (1.0-4.8) Monocytes # (Auto) 0.8 x10^3/uL (0.0-1.1) Eosinophils # (Auto) 0.1 x10^3/uL (0.0-0.7) Basophils # (Auto) 0.1 x10^3/uL (0.0-0.2) Sodium Level 136 mmol/L (136-145) Potassium Level 3.5 mmol/L (3.5-5.1) Chloride Level 99 mmol/L (98-107) Carbon Dioxide Level 34 mmol/L (21-32) H Anion Gap 3 (6-14) L Blood Urea Nitrogen 13 mg/dL (7-20) Creatinine 0.8 mg/dL (0.6-1.0) Estimated GFR (Cockcroft-Gault) 67.7 BUN/Creatinine Ratio 16 (6-20) Glucose Level 105 mg/dL (70-99) H Calcium Level 8.8 mg/dL (8.5-10.1) Total Bilirubin 0.5 mg/dL (0.2-1.0) Aspartate Amino Transferase (AST) 16 U/L (15-37) Alanine Aminotransferase (ALT) 19 U/L (14-59) Alkaline Phosphatase 73 U/L (46-116) Total Protein 7.7 g/dL (6.4-8.2) Albumin 3.4 g/dL (3.4-5.0) Albumin/Globulin Ratio 0.8 (1.0-1.7) L Laboratory Tests 11/14/16 16:40 Laboratory Tests 11/14/16 16:40 EKG EKG [] Radiology/Procedures Radiology/Procedures CT SOFT TISSUE NECK W/CONTRAST dated 11/14/2016 5:49 PM Indication: Painful swallowing for 2 days Comparison: Neck CTA December 06, 2012 Technique: CT imaging was performed of the[neck], multiplanar reconstruction images submitted. One or more of the following individualized dose reduction techniques were utilized for this examination: 1. Automated exposure control 2. Adjustment of the mA and/or kV according to patient size 3. Use of iterative reconstruction technique. Contrast: 75 cc Omnipaque 300 Findings: There is now somewhat ovoid hypodense lesion along the posterior wall of the right hypopharynx involving the right piriform sinus, greatest dimension approximately 1.4 cm transverse by 0.8 cm AP by approximately 1 cm cc. Internal density measurements are on the order of 21 Hounsfield units, not associated with significant peripheral enhancement. Appearance of some asymmetry of the right false cord is similar in appearance in the interval. The airway is patent. Tonsils are symmetric in appearance. Epiglottis is not appreciably thickened. 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 Mastoid air cells are aerated. Paranasal sinuses are overall aerated. There is deviation of nasal septum to the right. There is preservation of the parapharyngeal fat planes. Likely node of the anterior right parotid gland is similar. Right level 2 node 0.9 cm short axis dimension is larger although not considered significantly enlarged by axial imaging criteria. Left level 2 node on the order of 0.7 cm and another node 0.8 cm short axis dimension are also larger in the interval. 0.9 cm hypodense lesion of the right thyroid gland is larger than previously, some other heterogeneity of the thyroid gland bilaterally and also probable small hypodense nodule posteriorly on the left 0.4 cm overall unchanged. There is also likely 0.8 cm hypodense nodule of the left thyroid gland more inferiorly, overall similar. There is biapical pleural thickening as seen previously. IMPRESSION: 1. There is now ovoid hypodense lesion along the posterior wall of the right hypopharynx involving the right piriform sinus internal density measurements more suggestive of borderline complex fluid. An abscess is not excluded although no significant peripheral enhancement. Cystic mass is not excluded. Visual evaluation is advised. 2. While not considered significantly enlarged, nodes of the bilateral neck are larger than previous exam. 3. There are some hypodense thyroid nodules, on the right slightly larger than previous exam. Electronically signed by: Zoe Schroeder MD (11/14/2016 6:34 PM) [facility] DICTATED and SIGNED BY: ZOE SCHROEDER MD DATE: 11/14/16 180 Course & Med Decision Making Course & Med Decision Making Patient with obvious esophagitis on clinical exam and she also has an abnormal swelling in her pharynx as well. Given her age and that she is having difficulty eating and drinking I recommended transfer to a facility with a have ENT coverage. Patient refused stating that she did not feel that bad and she wanted to go home and follow up as an outpatient. He verbalized understanding of the reasons why I wanted to transfer her including possible airway compromise. She accepted the risks of and disability by leaving against my advice. Patient was given information for ENT to follow up with as an outpatient and told to follow-up as soon as possible and come back to the ER sooner with any worsening pain shortness of breath or other general concerns. Patient aware and agreeable with plan and verbalized understanding of the above instructions. Dragon Disclaimer Dragon Disclaimer This electronic medical record was generated, in whole or in part, using a voice recognition dictation system. Departure Departure Impression: Primary Impression: Esophagitis Additional Impression: Mass of esophagus Disposition: 01 HOME, SELF-CARE Condition: STABLE Referrals: SUSANNA STEELE Jr, MD (PCP) Patient Instructions: Esophagitis Additional Instructions: YOU NEED TO FOLLOW WITH THE ENT J[facility]. PLEASE CALL [phone], THIS IS DR. MCLAIN. BE SURE TO MENTION THAT YOU ARE A [facility] RESIDENT. COME BACK TO THE ED WITH ANY ISSUES. THANK YOU! Problem Qualifiers DEIDRE FONG DO Nov 14, 2016 19:04
[2016-11-14 19:25] VITALS: BP 163/72
== END 2016-11-14 19:28 | disposition home or self-care (01) ==
LOC: ER 16:00
DX: K20.9 Esophagitis, unspecified (principal); K22.8 Other specified diseases of esophagus; F41.9 Anxiety disorder, unspecified; I10 Essential (primary) hypertension; Z88.0 Allergy status to penicillin; Z90.12 Acquired absence of left breast and nipple; Z88.8 Allergy status to other drugs, medicaments and biological substances; Z88.1 Allergy status to other antibiotic agents
CPT/HCPCS: 36415; 70491; 80053; 85027; 96374; 99285; C1887; J1100; Q9967

== ENCOUNTER 2016-11-27 17:11 | Emergency (ER) | payer MEDICARE ==
[~2016-11-27] VITALS: Ht 152.4 cm; Wt 68.0 kg
[2016-11-27] MEDS ORDERED: IV NORMAL SALINE 1000ML BAG 1,000 ML IV SCH (18:28)
--- NOTE | 2016-11-27 18:37 | PHYS DOC ---
Past Medical History Past Medical History: Anxiety, Cancer, Hypertension, Other Additional Past Medical Histor: BREAST CANCER Past Surgical History: Other Additional Past Surgical Histo: Left mastectomy Alcohol Use: None Drug Use: None Adult General Chief Complaint Chief Complaint: HEADACHE HPI HPI Patient is a 86 year old female who presents with complaint of head pressure and vision changes. Patient states that these symptoms started 5 days ago. Patient states that she started having problems with head pressure after she had an adjustment of her neck done by her chiropractor. Patient states that the symptoms have been intermittent. Patient states that Saturday she had an episode of her vision going "black." Patient states despite seeing black, she could still make out objects in the room and states essentially that she could still see but that everything looked "black." She states that this lasted a few minutes and went away spontaneously. Patient also notes that she started having weakness in her right hand shortly after this that improved over the course of a few minutes. Patient states that again on Saturday she had a similar episode of lack vision but was still able to see. Patient denied any feelings of lightheadedness and stated that she did not feel she was going to pass out. Patient denied any dizziness or loss of balance and has been ambulating independently without difficulty. Patient states that she went to see her primary care physician earlier today, and she was instructed to come to the emergency department for further evaluation. Patient states that she was not told by her physician, Dr. Duarte, why she needed to come to the emergency department but was just instructed to come. The patient states that she is not having pain in her head but does state that it is "feeling bad." Patient does not provide a number on the pain scale when asked how she would rate her discomfort. Review of Systems Review of Systems Constitutional: Denies fever or chills [] Eyes: Denies change in visual acuity, redness, or eye pain [] HENT: Denies nasal congestion or sore throat [] Respiratory: Denies cough or shortness of breath [] Cardiovascular: Denies chest pain or edema [] GI: Denies abdominal pain, nausea, vomiting, bloody stools or diarrhea [] : Denies dysuria or hematuria [] Musculoskeletal: Denies back pain or joint pain [] Integument: Denies rash or skin lesions [] Neurologic: Had pressure, forgetfulness, vision changes, denies weakness [] Current Medications Current Medications Current Medications Medications (Trade) Dose Ordered Sig/Stephenie Start Time Stop Time Status Last Admin Dose Admin Diazepam (Valium) 2 mg 1X ONCE 11/27/16 19:15 11/27/16 19:16 DC 11/27/16 19:21 2 MG Magnesium Sulfate/ Dextrose 100 ml @ 100 mls/hr 1X ONCE 11/27/16 19:45 11/27/16 20:44 DC 11/27/16 20:43 100 MLS/HR Potassium Chloride (Klor-Con) 40 meq 1X ONCE 11/27/16 21:15 11/27/16 21:16 Sodium Chloride 1,000 ml @ 100 mls/hr Q10H 11/27/16 18:28 11/28/16 04:27 11/27/16 18:42 100 MLS/HR Allergies Allergies Allergies Coded Allergies Type Severity Reaction Last Updated Verified alendronate sodium Allergy Intermediate 11/14/16 Yes furosemide Allergy Intermediate 11/14/16 Yes rosuvastatin Allergy Intermediate 11/14/16 Yes Penicillins Allergy Mild "made my heart beat hard" 11/14/16 Yes atorvastatin Adverse Reaction Mild "made my stomach burn" 11/14/16 Yes cerivastatin Adverse Reaction Mild "it numbs the top of my head" 11/14/16 Yes chlorpromazine Adverse Reaction Mild "makes me tense and dopey" 11/14/16 Yes fenofibrate Adverse Reaction Mild "I had to hold on to the furniture" 11/14/16 Yes fluvastatin Adverse Reaction Mild "blows up my stomach" 11/14/16 Yes levofloxacin Adverse Reaction Mild "it made me have to hold on to the furniture" 11/14/16 Yes simvastatin Adverse Reaction Mild "muhammad stomach" 11/14/16 Yes thioridazine Adverse Reaction Mild "it makes me dopey and sleepy" 11/14/16 Yes gemfibrozil Adverse Reaction Unknown "things are not right" 11/14/16 Yes Physical Exam Physical Exam Constitutional: Alert, afebrile, no acute distress. [] HENT: Normocephalic, atraumatic, bilateral external ears normal, oropharynx moist, no oral exudates, nose normal. [] Eyes: PERRLA, EOMI, conjunctiva normal, no discharge. [] Neck: Normal range of motion, no tenderness, supple, no stridor. [] Cardiovascular:Heart rate regular rhythm, no murmur [] Lungs & Thorax: Bilateral breath sounds clear to auscultation [] Abdomen: Bowel sounds normal, soft, no tenderness, no masses, no pulsatile masses. [] Skin: Warm, dry, no erythema, no rash. [] Back: No tenderness, no CVA tenderness. [] Extremities: No tenderness, no cyanosis, no clubbing, ROM intact, no edema. [] Neurologic: Alert and oriented X 3, normal motor function, normal sensory function, no focal deficits noted. [] Current Patient Data Vital Signs Vital Signs Date Time Temp Pulse Resp B/P (MAP) Pulse Ox O2 Delivery O2 Flow Rate FiO2 11/27/16 19:09 85 22 193/81 (118) 99 Room Air 11/27/16 17:41 98.2 98.2 Lab Values Laboratory Tests Test 11/27/16 18:00 11/27/16 19:45 White Blood Count 10.2 x10^3/uL (4.0-11.0) Red Blood Count 3.90 x10^6/uL (3.50-5.40) Hemoglobin 12.3 g/dL (12.0-15.5) Hematocrit 36.4 % (36.0-47.0) Mean Corpuscular Volume 93 fL (79-100) Mean Corpuscular Hemoglobin 32 pg (25-35) Mean Corpuscular Hemoglobin Concent 34 g/dL (31-37) Red Cell Distribution Width 12.5 % (11.5-14.5) Platelet Count 279 x10^3/uL (140-400) Neutrophils (%) (Auto) 73 % (31-73) Lymphocytes (%) (Auto) 19 % (24-48) L Monocytes (%) (Auto) 7 % (0-9) Eosinophils (%) (Auto) 1 % (0-3) Basophils (%) (Auto) 1 % (0-3) Neutrophils # (Auto) 7.4 x10^3uL (1.8-7.7) Lymphocytes # (Auto) 1.9 x10^3/uL (1.0-4.8) Monocytes # (Auto) 0.8 x10^3/uL (0.0-1.1) Eosinophils # (Auto) 0.1 x10^3/uL (0.0-0.7) Basophils # (Auto) 0.1 x10^3/uL (0.0-0.2) Sodium Level 139 mmol/L (136-145) Potassium Level 3.1 mmol/L (3.5-5.1) L Chloride Level 98 mmol/L (98-107) Carbon Dioxide Level 32 mmol/L (21-32) Anion Gap 9 (6-14) Blood Urea Nitrogen 13 mg/dL (7-20) Creatinine 0.8 mg/dL (0.6-1.0) Estimated GFR (Cockcroft-Gault) 67.7 BUN/Creatinine Ratio 16 (6-20) Glucose Level 107 mg/dL (70-99) H Calcium Level 8.9 mg/dL (8.5-10.1) Magnesium Level 1.7 mg/dL (1.8-2.4) L Total Bilirubin 0.3 mg/dL (0.2-1.0) Aspartate Amino Transferase (AST) 14 U/L (15-37) L Alanine Aminotransferase (ALT) 16 U/L (14-59) Alkaline Phosphatase 58 U/L (46-116) Total Protein 7.2 g/dL (6.4-8.2) Albumin 3.3 g/dL (3.4-5.0) L Albumin/Globulin Ratio 0.8 (1.0-1.7) L Urine Collection Type Unknown Urine Color Yellow Urine Clarity Clear Urine pH 7.5 Urine Specific [place] <=1.005 Urine Protein Negative mg/dL (NEG-TRACE) Urine Glucose (UA) Negative mg/dL (NEG) Urine Ketones (Stick) Negative mg/dL (NEG) Urine Blood Negative (NEG) Urine Nitrite Negative (NEG) Urine Bilirubin Negative (NEG) Urine Urobilinogen Dipstick 0.2 mg/dL (0.2 mg/dL) Urine Leukocyte Esterase Small (NEG) Urine RBC Occ /HPF (0-2) Urine WBC 11-20 /HPF (0-4) Urine Squamous Epithelial Cells Mod /LPF Urine Bacteria Few /HPF (0-FEW) Laboratory Tests 11/27/16 18:00 Laboratory Tests 11/27/16 18:00 EKG EKG Interpreted by me: Heart rate 65, sinus rhythm, normal intervals, normal axis, no acute ST/T-wave abnormalities present [] Radiology/Procedures Radiology/Procedures [facility] [address] [place] [address] IMAGING REPORT Signed PATIENT: WILBERT LORENZ ACCOUNT: [id number] : 1930 LOCATION: ER AGE: 86 SEX: F EXAM STATUS: REG ER ORD. PHYSICIAN: SIERRA HAMM MD REASON: headache, vision changes PROCEDURE: CT HEAD WO CONTRAST CT HEAD WO CONTRAST History: headache, vision changes, altered mental status Comparison: February 05, 2013 Technique: Noncontrast [address] images were acquired from the skull base to the vertex. Exposure: One or more of the following individualized dose reduction techniques were utilized for this examination: 1. Automated exposure control 2. Adjustment of the mA and/or kV according to patient size 3. Use of iterative reconstruction technique. Findings: No acute extra-axial or parenchymal hemorrhage is identified. 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 There is again multifocal low-density of the supratentorial white matter and basal ganglia, may be slightly increased of the frontal white matter bilaterally. Ventricular size is similar. There is no significant intra-axial mass effect, midline shift, or extra-axial fluid collection. The aleman-white differentiation of the major vascular territories is preserved. Cerebral volume is considered within normal limits for the patient's age. The mastoid air cells and the visualized paranasal sinuses are aerated. No acute calvarial abnormality is identified. There is deviation of the nasal septum to the right. Impression: 1. No acute intracranial abnormality is identified. 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 There is again ill-defined low-density of the supratentorial white matter and basal ganglia, nonspecific although likely due to chronic microvascular ischemic disease in combination with possible small lacunar infarcts, slightly progressed of the frontal lobes bilaterally. Electronically signed by: Zoe Schroeder MD (11/27/2016 7:03 PM) [facility] DICTATED and SIGNED BY: ZOE SCHROEDER MD DATE: 11/27/16 190 CC: SIERRA HAMM MD; SUSANNA DUARTE Jr, MD ~ [] Course & Med Decision Making Course & Med Decision Making Pertinent Labs and Imaging studies reviewed. (See chart for details) Patient was found to have low magnesium and potassium levels which were placed in the emergency department. The patient's workup is otherwise unremarkable. The patient complained of intermittent symptoms including numbness in her legs which resolved as well as numbness around her mouth. On further questioning, the patient did admit that she is on lorazepam therapy at home and that she had not taken her dose over the past couple days. The patient was treated with 2 mg of IV Valium which she stated helped her symptoms and help the pressure in her head. I suspect that the patient's symptoms are likely secondary to anxiety as well as reactive muscle tightness from recent neck adjustment. I have very low suspicion that the patient's symptoms are related to stroke phenomenon. Advised that the patient continue taking her lorazepam as prescribed. Recommended follow -up in 3 days with the patient's primary doctor for reevaluation. Advised return emergency department for any worsening symptoms. Patient voiced understanding and in agreement with treatment plan. Dragon Disclaimer Dragon Disclaimer This electronic medical record was generated, in whole or in part, using a voice recognition dictation system. Departure Departure Impression: Primary Impression: Tension headache Additional Impressions: Hypokalemia Hypomagnesemia Disposition: 01 HOME, SELF-CARE Condition: IMPROVED Referrals: SUSANNA DUARTE Jr, MD (PCP) Patient Instructions: Hypokalemia, Hypomagnesemia, Tension Headache Additional Instructions: Follow-up with your primary doctor in 3 days for reevaluation. Be sure to take your lorazepam prescription as prescribed as stress and anxiety may be contributing to your symptoms. Return to the emergency department for any worsening symptoms. Problem Qualifiers SIERRA HAMM MD Nov 27, 2016 18:37
[2016-11-27 18:43] LABS: BASO # 0.1 x10^3/uL (0.0-0.2); BASO % 1 % (0-3); EOS % 1 % (0-3); HEMATOCRIT 36.4 % (36.0-47.0); HEMOGLOBIN 12.3 g/dL (12.0-15.5); LYMPH # 1.9 x10^3/uL (1.0-4.8); LYMPH % 19 % (24-48); MEAN CORPUSCULAR HEMOGLOBIN 32 pg (25-35); MEAN CORPUSCULAR HGB CONC 34 g/dL (31-37); MEAN CORPUSCULAR VOLUME 93 fL (79-100); MONO % 7 % (0-9); NEUT % 73 % (31-73); PLATELET COUNT 279 x10^3/uL (140-400); RED CELL DISTRIBUTION WIDTH 12.5 % (11.5-14.5); WHITE BLOOD COUNT 10.2 x10^3/uL (4.0-11.0)
[2016-11-27 18:51] LABS: CALCIUM 8.9 mg/dL (8.5-10.1); CREATININE 0.8 mg/dL (0.6-1.0); GFR 67.7; POTASSIUM 3.1 mmol/L (3.5-5.1)
[2016-11-27 18:58] LABS: ALBUMIN 3.3 g/dL (3.4-5.0); ALBUMIN/GLOBULIN RATIO 0.8 (1.0-1.7); MAGNESIUM 1.7 mg/dL (1.8-2.4); TOTAL BILIRUBIN 0.3 mg/dL (0.2-1.0); TOTAL PROTEIN 7.2 g/dL (6.4-8.2)
--- NOTE | 2016-11-27 19:07 | RAD ---
CT HEAD WO CONTRAST History: headache, vision changes, altered mental status Comparison: February 05, 2013 Technique: Noncontrast [address] images were acquired from the skull base to the vertex. Exposure: One or more of the following individualized dose reduction techniques were utilized for this examination: 1. Automated exposure control 2. Adjustment of the mA and/or kV according to patient size 3. Use of iterative reconstruction technique. Findings: No acute extra-axial or parenchymal hemorrhage is identified. 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 There is again multifocal low-density of the supratentorial white matter and basal ganglia, may be slightly increased of the frontal white matter bilaterally. Ventricular size is similar. There is no significant intra-axial mass effect, midline shift, or extra-axial fluid collection. The aleman-white differentiation of the major vascular territories is preserved. Cerebral volume is considered within normal limits for the patient's age. The mastoid air cells and the visualized paranasal sinuses are aerated. No acute calvarial abnormality is identified. There is deviation of the nasal septum to the right. Impression: 1. No acute intracranial abnormality is identified. 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 There is again ill-defined low-density of the supratentorial white matter and basal ganglia, nonspecific although likely due to chronic microvascular ischemic disease in combination with possible small lacunar infarcts, slightly progressed of the frontal lobes bilaterally. Electronically signed by: Prabhakar Mooney MD (11/27/2016 7:03 PM) [facility]
[2016-11-27] MEDS ORDERED: MAGNESIUM SULFATE 1GM 100 ML IV ONE (19:45)
[2016-11-27 20:01] LABS: BILIRUBIN,URINE NEGATIVE (NEG); GLUCOSE,URINE NEGATIVE (NEG); NITRITE,URINE NEGATIVE (NEG); PH,URINE 7.5; PROTEIN,URINE NEGATIVE (NEG-TRACE); UROBILINOGEN,URINE 0.2 mg/dL (0.2 mg/dL)
[2016-11-27 20:14] LABS: BACTERIA,URINE FEW /HPF (0-FEW); RBC,URINE OCC /HPF (0-2)
[2016-11-27 20:15] LABS: SQUAMOUS EPITHELIAL CELL,UR MOD /LPF
[2016-11-27] MEDS ORDERED: POTASSIUM CHLORIDE 20 MEQ TABLET.ER. PO ONE (21:15)
[2016-11-27 21:41] VITALS: BP 210/86
--- NOTE | 2016-11-28 06:43 | EKG ---
[facility] [address] [place] [address] Test Date: 2016-11-27 Test Time: 18:38:33 Pat Name: WILBERT LORENZ Department: Room: Gender: F [employer]quest[employer]er: : 1930 Requested By: SIERRA HAMM Order Number: [id number] Reading MD: Sruthi Haskins Measurements Intervals [place] Rate: 65 P: 48 CO: 172 QRS: 10 QRSD: 74 T: 31 QT: 424 QTc: 442 Interpretive Statements SINUS RHYTHM NORMAL EKG Electronically Signed On 11-28-2016 20:43:55 CDT by Sruthi Haskins
== END 2016-11-27 22:09 | disposition home or self-care (01) ==
LOC: ER 17:11
DX: G44.209 Tension-type headache, unspecified, not intractable (principal); E87.6 Hypokalemia; E83.42 Hypomagnesemia; I10 Essential (primary) hypertension; Z85.3 Personal history of malignant neoplasm of breast; F41.9 Anxiety disorder, unspecified; Z88.0 Allergy status to penicillin; Z88.1 Allergy status to other antibiotic agents; Z88.8 Allergy status to other drugs, medicaments and biological substances
CPT/HCPCS: 36415; 70450; 80053; 81001; 83735; 85025; 87086; 93005; 96361; 96365; 96375; 99285; J3360; J3475; J7030